=== PATIENT | female | born 1945 | race Caucasian/White ===

== ENCOUNTER 2017-10-11 23:54 | Emergency (ER) | payer MEDICARE, OTHER ==
[~2017-10-11] VITALS: Ht 160 cm; Wt 67.3 kg
[2017-10-11 23:58] VITALS: BP 152/69; TEMP 98.4
[2017-10-12 01:20] LABS: BASO % 0.3 % (0.0-2.0); EOS # 0.2 (0.0-0.7); GRAN % 68.9 % (42.2-75.2); HEMATOCRIT 37.7 % (37.0-47.0); HEMOGLOBIN 12.2 g/dl (12.5-16.0); LYMPH % 19.7 % (20.0-51.0); MEAN CELL VOLUME 95 fl (80.0-100.0); MEAN CORPUSCULAR HEMOGLOBIN 31 pg (27.0-31.0); MEAN CORPUSCULAR HGB CONC 32 g/dl (33.0-37.0); MEAN PLATELET VOLUME 8.8 fl (7.4-10.4); MONO # 0.9 (0.1-0.6); MONO % 8.6 % (1.7-9.3); PLATELET COUNT 185 K/mm3 (130-400); RED BLOOD COUNT 3.98 M/mm3 (4.10-5.30); REDCELL DISTRIBUTION WIDTH-CV 13.3 % (11.5-14.5)
[2017-10-12 01:26] LABS: INR 2.9 (0.8-3.0); PROTHROMBIN TIME 33.1 SECONDS (9.7-12.8)
[2017-10-12] MEDS ORDERED: COUMADIN 3MG3 MG/TAB PO (01:26)
[2017-10-12] MEDS ORDERED: COZAAR100 MG PO (01:27)
[2017-10-12] MEDS ORDERED: NORVASC2.5 MG PO (01:27)
[2017-10-12] MEDS ORDERED: MOBIC 7.5MG7.5 MG PO (01:28)
[2017-10-12] MEDS ORDERED: LEXAPRO20 MG PO (01:28)
[2017-10-12 01:29] LABS: PARTIAL THROMBOPLASTIN TIME 55.4 SECONDS (26.0-37.0)
[2017-10-12] MEDS ORDERED: VITAMIN D 1001000 IU PO (01:29)
[2017-10-12] MEDS ORDERED: MAGNESIUM250 M1 PO (01:29)
[2017-10-12] MEDS ORDERED: ARICEPT 5MG PO (01:30)
[2017-10-12 01:32] LABS: ALBUMIN 4.2 gm/dL (3.5-5.0); BILIRUBIN,TOTAL 0.5 mg/dL (0.0-1.0); CALCIUM 9.2 mg/dL (8.4-10.2); CREATININE, serum 1.21 mg/dL (0.52-1.25); POTASSIUM 3.7 mmol/L (3.4-5.0); TOTAL PROTEIN 7.6 gm/dL (6.4-8.2)
[2017-10-12 04:40] VITALS: PULSE 76
== END 2017-10-12 04:40 | disposition home or self-care (01) ==
LOC: COL.ER 23:54
PROVIDERS: Emergency Medicine
DX: R19.7 Diarrhea, unspecified (principal); I10 Essential (primary) hypertension; Z90.710 Acquired absence of both cervix and uterus; Z79.01 Long term (current) use of anticoagulants; Z79.891 Long term (current) use of opiate analgesic; Z86.711 Personal history of pulmonary embolism
CPT/HCPCS: J7030